=== PATIENT | female | born 1970 | race Caucasian/White ===

== ENCOUNTER 2016-09-01 20:59 | Emergency (ER) | payer OTHER | END 2016-09-02 00:11 | disposition home or self-care (01) | LOC: FER 20:59 | DX: S42.411B Displaced simple supracondylar fracture without intercondylar fracture of right humerus, initial encounter for open fracture (principal); M25.511 Pain in right shoulder; M79.641 Pain in right hand; E03.9 Hypothyroidism, unspecified; Z79.899 Other long term (current) drug therapy; V86.69XA Passenger of other special all-terrain or other off-road motor vehicle injured in nontraffic accident, initial encounter | CPT/HCPCS: 73000; 73030; 73060; 73090; 73140; J1885 ==